=== PATIENT | male | born 1975 | race Caucasian/White ===

== ENCOUNTER 2025-05-23 20:21 | Emergency (ER) | payer MEDICAID ==
[~2025-05-23] VITALS: Ht 177.8 cm; Wt 95.0 kg
[2025-05-23 20:23] VITALS: BP 116/63; PULSE 78; RESP 16; TEMP 98.1; O2SAT 97
== END 2025-05-23 23:06 | disposition left against medical advice (07) ==
LOC: ER 20:21
DX: M79.606 Pain in leg, unspecified (principal); Z53.21 Procedure and treatment not carried out due to patient leaving prior to being seen by health care provider
CPT/HCPCS: 99281